=== PATIENT | male | born 1960 | race Caucasian/White ===

== ENCOUNTER 2018-11-27 10:02 | Outpatient (CLI) | payer BC ==
--- NOTE | 2018-11-27 10:37 | RAD ---
XR Cerv Sp Ap Lat STANDARD HISTORY: Neck pain. COMPARISON: None. FINDINGS: The vertebral bodies are normal in height there is marked degenerative change of the spine with fairly pronounced disc narrowing at C5-6 and C6-7 osteophytes are seen along the course of the spine. Degenerative facet changes are more left-sided. Carotid bulb calcifications are noted on the l eft. IMPRESSION: Moderate osteoarthritic changes of the spine.
--- NOTE | 2018-11-27 10:38 | RAD ---
XR Lumbar Spine Min 4 View: 11/27/2018 12:00 AM CLINICAL INDICATION: Pain COMPARISON: None. FINDINGS: Fracture:No fracture. Arthropathy:Multilevel moderate endplate degenerative changes with disc space narrowing, endplate scl erosis and marginal osteophytosis present. Pronounced disc space narrowing and osteophytosis at L5-S1. Grade I spondylolisthesis at L5-S1 is present. Evaluation of flexion/extension positioning relative to neutral positioning reveals no obvious transl ational motion There is severe multilevel facet osteoarthritis, greatest inferiorly. Incidental findings:Atherosclerosis IMPRESSION: 1. No acute osseous abnormality. 2. 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 3. Grade I spondylolisthesis, L5-S1, without significant translational motion.
== END 2018-11-27 10:03 | disposition home or self-care (01) ==
LOC: TBSIIMAG 10:02
PROVIDERS: ATTEND Surgery
DX: M54.5 Low back pain (principal); M47.812 Spondylosis without myelopathy or radiculopathy, cervical region; M47.816 Spondylosis without myelopathy or radiculopathy, lumbar region; M43.17 Spondylolisthesis, lumbosacral region
CPT/HCPCS: 72040; 72110